=== PATIENT | male | born 1975 | race Caucasian/White ===

== ENCOUNTER → 2021-06-14 | Outpatient (CLI) | payer OTHER ==
--- NOTE | 2021-06-14 16:56 | RAD ---
EXAM: XR LUMBAR SPINE 2-3V 06/14/2021 10:27 AM CLINICAL INDICATION: Low back pain COMPARISON: None TECHNIQUE: 2 views of the lumbar spine FINDINGS: The lumbar spine is normal in alignment. There is no acute fracture. There is mild disc sp gregory narrowing throughout the lumbar spine. Small osteophytes in the lower thoracic spine. No signific ant facet arthrosis. IMPRESSION: Mild degenerative disc disease in the lumbar spine. Electronically signed by: Bernice Medina MD (06/14/2021 4:54 PM) [id number]
== END ==
LOC: RAD 09:52
PROVIDERS: ATTEND Family Medicine
DX: M51.36 Other intervertebral disc degeneration, lumbar region (principal); M48.061 Spinal stenosis, lumbar region without neurogenic claudication; M25.78 Osteophyte, vertebrae
CPT/HCPCS: 72100